=== PATIENT | female | born 1960 | race Hispanic/Latino ===

== ENCOUNTER 2017-09-09 09:03 | Day surgery (SDC) | payer MEDICARE, OTHER ==
[2017-08-28 09:09] VITALS: BMI 20.5
[2017-09-09] MEDS ORDERED: Propofol 10 mg/ml Inj (20 ML) ONE (10:19)
[2017-09-09] MEDS ORDERED: Sodium Chloride 0.9% 1,000 ML IV SCH (10:45)
[2017-09-09 11:38] VITALS: RESP 15
[2017-09-09 13:04] VITALS: BP 118/70; PULSE 74; TEMP 97.4; O2SAT 97
== END 2017-09-09 12:35 | disposition home or self-care (01) ==
LOC: ENDO 09:03
PROVIDERS: ATTEND Specialist
DX: K20.9 Esophagitis, unspecified (principal); K44.9 Diaphragmatic hernia without obstruction or gangrene; K31.9 Disease of stomach and duodenum, unspecified; B96.81 Helicobacter pylori [H. pylori] as the cause of diseases classified elsewhere
CPT/HCPCS: 43239; 88305; 88312; 88342; J2704; J7040 ×2